=== PATIENT | female | born 1955 | race Caucasian/White ===

== ENCOUNTER 2020-03-01 19:04 | Emergency (ER) | payer BC ==
[2020-03-01 19:17] VITALS: BP 153/89; PULSE 61; BMI 39.4
[2020-03-01 20:47] LABS: INR 1.15 (0.82-1.09); PROTHROMBIN TIME (PATIENT) 12.8 SEC (10.2-13.0)
[2020-03-01 20:49] LABS: ALBUMIN 4.1 g/dl (3.4-5.0); BILIRUBIN,TOTAL 1.1 mg/dl (0.2-1); CALCIUM 9.1 mg/dl (8.5-10); CREATININE 0.8 mg/dl (0.55-1.3); POTASSIUM 3.9 mmol/L (3.5-5.1); TOT PROT 6.9 g/dl (6.4-8.2)
[2020-03-01 20:56] LABS: BASO % 2.3 % (0-2.0); EOS % 1.3 % (0-4.5); HEMATOCRIT 41.9 % (32.4-45.2); HEMOGLOBIN 13.6 GM/dl (10.7-15.3); LYMPH % 29.1 % (8-40); MCH 29.3 pg (25.7-33.7); MCHC 32.5 g/dl (32.0-36.0); MEAN CELL VOLUME 90.2 fl (80-96); MEAN PLT VOLUME 9.8 fl (7.5-11.1); MONO % 7.7 % (3.8-10.2); NEUT % 59.6 % (42.8-82.8); PLATELET COUNT 194 K/MM3 (134-434); RBC 4.64 M/mm3 (3.60-5.2); RDW 12.5 % (11.6-15.6)
[2020-03-01 21:58] VITALS: TEMP 97.9
== END 2020-03-01 23:26 | disposition home or self-care (01) ==
LOC: FER 19:04
DX: R14.0 Abdominal distension (gaseous) (principal); R19.7 Diarrhea, unspecified; J01.01 Acute recurrent maxillary sinusitis
CPT/HCPCS: 36415; 74176-TC; 80053; 81003; 83605; 83690; 85025; 85610; 87040; 99284-25; C9803; U0003

== ENCOUNTER 2020-08-10 10:43 | Inpatient (IN) | payer BC ==
[2020-08-10] MEDS ORDERED: ACETAMINOPHEN 1000 MG/100 ML VIAL (NON FORMULARY) IVPB ONE (11:00)
[2020-08-10] MEDS ORDERED: LACTATED RINGERS SOLUTION 1000 ML INFUS.BAG IV ONE (11:00)
[2020-08-10 11:06] VITALS: BMI 40.3
[2020-08-10] MEDS ORDERED: ACETAMINOPHEN INJECTION 100 ML IVPB ONE (11:49)
[2020-08-10 11:54] LABS: BASO % 2.6 % (0-2.0); EOS % 0.1 % (0-4.5); HEMATOCRIT 40.8 % (32.4-45.2); LYMPH % 4.8 % (8-40); MCH 29.9 pg (25.7-33.7); MCHC 34.2 g/dl (32.0-36.0); MEAN CELL VOLUME 87.6 fl (80-96); MEAN PLT VOLUME 9.5 fl (7.5-11.1); MONO % 4.4 % (3.8-10.2); NEUT % 88.1 % (42.8-82.8); PLATELET COUNT 189 K/MM3 (134-434); RBC 4.66 M/mm3 (3.60-5.2); RDW 12.5 % (11.6-15.6); WHITE BLOOD COUNT 13.8 K/mm3 (4.0-10.8)
[2020-08-10 12:10] LABS: ACTIVATED PTT 25.7 SECONDS (25.2-36.5)
[2020-08-10 12:13] LABS: ALK PHOS 56 U/L (45-117); ANION GAP 7 MMOL/L (8-16); BILIRUBIN,TOTAL 1.2 mg/dl (0.2-1); CALCIUM 8.6 mg/dl (8.5-10); CHLORIDE 105 mmol/L (98-107); CO2 23 mmol/L (21-32); CREATININE 0.8 mg/dl (0.55-1.3); GLUCOSE,RANDOM 101 mg/dl (74-106); SGOT/AST 25 U/L (15-37); SGPT/ALT 29 U/L (13-61); SODIUM 135 mmol/L (136-145); TOT PROT 6.7 g/dl (6.4-8.2)
[2020-08-10 12:14] LABS: INR 1.02 (0.82-1.09); PROTHROMBIN TIME (PATIENT) 11.4 SEC (10.2-13.0)
[2020-08-10] MEDS ORDERED: VANCOMYCIN 250 MG/5 ML ORAL SOLUTION PO ONE (14:32)
[2020-08-10] MEDS ORDERED: ACETAMINOPHEN 1000 MG/100 ML VIAL (NON FORMULARY) IVPB PRN (19:53)
[2020-08-10] MEDS: D5-NS + 20 MEQ KCL - 20 MEQ/1,000 ML INFUS.BAG IV SCH (20:00)
[2020-08-10] MEDS: LACTOBACILLUS ACIDOPHILUS 1 TABLET PO SCH (21:47)
[2020-08-10] MEDS: FAMOTIDINE 20 MG/50 ML IVPB 20 MG/50 ML MG IVPB SCH (21:47)
[2020-08-10] MEDS ORDERED: REFRIGERATED ANITBIOTICS ONE (22:23)
[2020-08-11] MEDS ORDERED: REFRIGERATED ANITBIOTICS ONE ×4 (06:19→22:12)
[2020-08-11] MEDS: VANCOMYCIN 250 MG/5 ML ORAL SOLUTION PO SCH ×4 (06:32→17:42)
[2020-08-11 07:44] LABS: BASO % 2.9 % (0-2.0); EOS % 0.5 % (0-4.5); HEMATOCRIT 38.3 % (32.4-45.2); HEMOGLOBIN 12.5 GM/dl (10.7-15.3); LYMPH % 11.7 % (8-40); MCH 28.7 pg (25.7-33.7); MCHC 32.6 g/dl (32.0-36.0); MEAN CELL VOLUME 87.9 fl (80-96); MEAN PLT VOLUME 9.2 fl (7.5-11.1); MONO % 7.1 % (3.8-10.2); NEUT % 77.8 % (42.8-82.8); PLATELET COUNT 168 K/MM3 (134-434); RBC 4.35 M/mm3 (3.60-5.2); RDW 12.6 % (11.6-15.6); WHITE BLOOD COUNT 7.5 K/mm3 (4.0-10.8)
[2020-08-11 08:09] LABS: ALBUMIN 3.2 g/dl (3.4-5.0); CALCIUM 8.3 mg/dl (8.5-10); CREATININE 0.7 mg/dl (0.55-1.3); TOT PROT 5.4 g/dl (6.4-8.2)
[2020-08-11] MEDS ORDERED: LEVOTHYROXINE NA 75 MCG TABLET (FP) ONE (09:25)
[2020-08-11] MEDS ORDERED: LEVOTHYROXINE NA 100 MCG TABLET (FP) ONE (09:25)
[2020-08-11] MEDS: NEBIVOLOL 2.5 MG TABLET (FP) PO SCH (09:38)
[2020-08-11] MEDS: LEVOTHYROXINE 75 MCG, LEVOTHYROXINE 100 MCG PO SCH (09:38)
[2020-08-11] MEDS: LACTOBACILLUS ACIDOPHILUS 1 TABLET PO SCH ×2 (09:39→21:24)
[2020-08-11] MEDS: FAMOTIDINE 20 MG/50 ML IVPB 20 MG/50 ML MG IVPB SCH ×2 (09:39→21:25)
[2020-08-11] MEDS ORDERED: LEVOTHYROXINE NA 100 MCG TABLET (FP) PO SCH (10:00)
[2020-08-11] MEDS: D5-NS + 20 MEQ KCL - 20 MEQ/1,000 ML INFUS.BAG IV SCH (21:24)
[2020-08-12] MEDS: VANCOMYCIN 250 MG/5 ML ORAL SOLUTION PO SCH ×4 (00:41→18:24)
[2020-08-12] MEDS ORDERED: LEVOTHYROXINE NA 100 MCG TABLET (FP) ONE (06:05)
[2020-08-12] MEDS ORDERED: LEVOTHYROXINE NA 75 MCG TABLET (FP) ONE (06:05)
[2020-08-12] MEDS ORDERED: REFRIGERATED ANITBIOTICS ONE ×3 (06:05→18:21)
[2020-08-12] MEDS: LEVOTHYROXINE 75 MCG, LEVOTHYROXINE 100 MCG PO SCH (06:10)
[2020-08-12 08:25] LABS: BASO % 0.5 % (0-2.0); EOS % 1.7 % (0-4.5); HEMATOCRIT 37.9 % (32.4-45.2); HEMOGLOBIN 12.2 GM/dl (10.7-15.3); LYMPH % 20.8 % (8-40); MCH 28.7 pg (25.7-33.7); MCHC 32.2 g/dl (32.0-36.0); MEAN CELL VOLUME 89.1 fl (80-96); MEAN PLT VOLUME 9.7 fl (7.5-11.1); MONO % 12.4 % (3.8-10.2); NEUT % 64.6 % (42.8-82.8); PLATELET COUNT 163 K/MM3 (134-434); RBC 4.26 M/mm3 (3.60-5.2); RDW 12.6 % (11.6-15.6); WHITE BLOOD COUNT 4.9 K/mm3 (4.0-10.8)
[2020-08-12 08:31] LABS: ALBUMIN 3.1 g/dl (3.4-5.0); BILIRUBIN,TOTAL 0.8 mg/dl (0.2-1); CALCIUM 8.2 mg/dl (8.5-10); CREATININE 0.7 mg/dl (0.55-1.3); TOT PROT 5.4 g/dl (6.4-8.2)
[2020-08-12] MEDS: NEBIVOLOL 2.5 MG TABLET (FP) PO SCH ×2 (11:00→11:15)
[2020-08-12] MEDS: FAMOTIDINE 20 MG/50 ML IVPB 20 MG/50 ML MG IVPB SCH (11:15)
[2020-08-12] MEDS: LACTOBACILLUS ACIDOPHILUS 1 TABLET PO SCH (11:15)
[2020-08-12 14:36] VITALS: BP 122/65; PULSE 49; TEMP 98.3
== END 2020-08-12 19:25 | disposition home or self-care (01) | DRG 373 ==
LOC: FER 10:43 → FM/S 16:44
PROVIDERS: ADMIT Internal Medicine; ATTEND Internal Medicine
DX: A04.72 Enterocolitis due to Clostridium difficile, not specified as recurrent (principal); I10 Essential (primary) hypertension; E03.9 Hypothyroidism, unspecified; E86.0 Dehydration
CPT/HCPCS: 36415; 74176-TC; 80053; 83605; 83735; 84484; 85025; 85610; 85730; 87040; 87045; 87046; 87081; 87324; 87449; 99285-25; C9803; J0131; U0003; U0005

== ENCOUNTER 2022-05-10 09:05 | Emergency (ER) | payer BC ==
[2022-05-10 09:34] VITALS: BP 140/73; PULSE 74; RESP 16; BMI 39.4
[2022-05-10] MEDS ORDERED: ACETAMINOPHEN 1000 MG/100 ML BAG IVPB ONE (10:12)
[2022-05-10] MEDS ORDERED: MAG HYDROX/AL HYDROX/SIMETH 30 ML UNIT-DOSE CUP PO ONE (10:12)
[2022-05-10] MEDS ORDERED: MAG HYDROX/AL HYDROX/SIMETH 30 ML UNIT-DOSE CUP ONE (10:22)
[2022-05-10] MEDS ORDERED: ACETAMINOPHEN INJECTION 100 ML IVPB ONE (10:22)
[2022-05-10 10:38] LABS: HEMATOCRIT 40.7 % (32.4-45.2); HEMOGLOBIN 13.8 G/dL (10.7-15.3); MCH 29.7 pg (25.7-33.7); MEAN CELL VOLUME 87.6 fl (80-96); MEAN PLT VOLUME 8.5 fl (7.5-11.1); PLATELET COUNT 190.1 10^3/uL (134-434); RBC 4.65 10^6/uL (3.60-5.2); RDW 13.9 % (11.6-15.6); WHITE BLOOD COUNT 12.7 10^3/uL (4.0-10.8)
[2022-05-10 10:43] LABS: BILIRUBIN,TOTAL 1.2 mg/dl (0.2-1); CALCIUM 8.9 mg/dl (8.5-10); CREATININE 0.7 mg/dl (0.55-1.3); TOT PROT 6.8 g/dl (6.4-8.2)
[2022-05-10 10:55] LABS: PLATELET ESTIMATE ADEQUATE
[2022-05-10 13:21] VITALS: TEMP 97.6
== END 2022-05-10 13:25 | disposition home or self-care (01) ==
LOC: FER 09:05
PROC: 3E0333Z Introduction of Anti-inflammatory into Peripheral Vein, Percutaneous Approach (ICD-10-PCS; principal; 2022-05-10)
DX: K57.32 Diverticulitis of large intestine without perforation or abscess without bleeding (principal)
CPT/HCPCS: 36415; 74176-TC; 80053; 81003; 83605; 83690; 85027; 99284-25

== ENCOUNTER 2022-06-01 19:49 | Inpatient (IN) | payer BC ==
[2022-06-01 19:58] VITALS: BMI 39.4
[2022-06-01 21:05] LABS: HEMATOCRIT 37.6 % (32.4-45.2); HEMOGLOBIN 12.7 G/dL (10.7-15.3); MCH 29.4 pg (25.7-33.7); MCHC 33.6 g/dl (32.0-36.0); MEAN CELL VOLUME 87.3 fl (80-96); MEAN PLT VOLUME 9.5 fl (7.5-11.1); RBC 4.31 10^6/uL (3.60-5.2); RDW 15.2 % (11.6-15.6); WHITE BLOOD COUNT 11.5 10^3/uL (4.0-10.8)
[2022-06-01 21:11] LABS: ALBUMIN 3.7 g/dl (3.4-5.0); BILIRUBIN,TOTAL 1.2 mg/dl (0.2-1); CALCIUM 8.5 mg/dl (8.5-10); CREATININE 0.6 mg/dl (0.55-1.3); TOT PROT 6.3 g/dl (6.4-8.2)
[2022-06-01] MEDS ORDERED: SODIUM CHLORIDE 1,000 ML IV ONE (23:23)
[2022-06-01] MEDS ORDERED: CEFTRIAXONE 2,000 MG in DEXTROSE 5%-WATER - 50 ML IVPB ONE (23:27)
[2022-06-01] MEDS ORDERED: cefTRIAXone SODIUM 1 GM VIAL ONE (23:28)
[2022-06-01] MEDS ORDERED: ACETAMINOPHEN 500 MG TABLET (FP) PO PRN (23:35)
[2022-06-01] MEDS ORDERED: SODIUM CHLORIDE 1,000 ML IV SCH (23:45)
[2022-06-02] MEDS: CEFTRIAXONE 2 GM in DEXTROSE 5%-WATER 100 ML IVPB SCH (09:43)
[2022-06-02] MEDS ORDERED: LEVOTHYROXINE NA 100 MCG TABLET (FP) PO SCH ×2 (10:00)
[2022-06-02] MEDS: LACTOBACILLUS ACIDOPHILUS 1 TABLET PO SCH ×2 (13:03→21:21)
[2022-06-02] MEDS: FAMOTIDINE 20 MG/50 ML IVPB 20 MG/50 ML MG IVPB SCH (21:21)
[2022-06-03] MEDS ORDERED: LEVOTHYROXINE 75 MCG, LEVOTHYROXINE 100 MCG PO SCH (07:30)
[2022-06-03 08:22] LABS: ALBUMIN 3.2 g/dl (3.4-5.0); BILIRUBIN,TOTAL 0.8 mg/dl (0.2-1); CALCIUM 8.6 mg/dl (8.5-10); CREATININE 0.6 mg/dl (0.55-1.3); TOT PROT 5.8 g/dl (6.4-8.2)
[2022-06-03] MEDS: CEFTRIAXONE 2 GM in DEXTROSE 5%-WATER 100 ML IVPB SCH (09:17)
[2022-06-03] MEDS: LACTOBACILLUS ACIDOPHILUS 1 TABLET PO SCH ×2 (09:17→21:45)
[2022-06-03] MEDS: FAMOTIDINE 20 MG/50 ML IVPB 20 MG/50 ML MG IVPB SCH ×2 (09:17→21:45)
[2022-06-03 09:56] LABS: BASO % 0.4 % (0-2.0); EOS % 1.9 % (0-4.5); HEMATOCRIT 34.6 % (32.4-45.2); HEMOGLOBIN 11.6 GM/dL (10.7-15.3); LYMPH % 16.9 % (8-40); MCH 28.6 pg (25.7-33.7); MCHC 33.5 g/dl (32.0-36.0); MEAN CELL VOLUME 85.1 fl (80-96); MEAN PLT VOLUME 9.7 fl (7.5-11.1); MONO % 8.9 % (3.8-10.2); NEUT % 71.9 % (42.8-82.8); PLATELET COUNT 154 10^3/uL (134-434); RBC 4.07 M/mm3 (3.60-5.2); RDW 14.2 % (11.6-15.6); WHITE BLOOD COUNT 6.1 K/mm3 (4.0-10.0)
[2022-06-04] MEDS: LEVOTHYROXINE 75 MCG, LEVOTHYROXINE 100 MCG PO SCH (06:27)
[2022-06-04 08:54] LABS: CALCIUM 8.5 mg/dl (8.5-10); CREATININE 0.6 mg/dl (0.55-1.3); TOT PROT 5.4 g/dl (6.4-8.2)
[2022-06-04 09:51] LABS: BASO % 0.3 % (0-2.0); EOS % 2.5 % (0-4.5); HEMATOCRIT 33.9 % (32.4-45.2); HEMOGLOBIN 11.4 GM/dL (10.7-15.3); LYMPH % 19.7 % (8-40); MCH 28.5 pg (25.7-33.7); MCHC 33.5 g/dl (32.0-36.0); MEAN CELL VOLUME 85.1 fl (80-96); MEAN PLT VOLUME 9.6 fl (7.5-11.1); MONO % 10.3 % (3.8-10.2); NEUT % 67.2 % (42.8-82.8); PLATELET COUNT 147 10^3/uL (134-434); RBC 3.99 M/mm3 (3.60-5.2); RDW 13.4 % (11.6-15.6); WHITE BLOOD COUNT 4.8 K/mm3 (4.0-10.0)
[2022-06-04] MEDS: LACTOBACILLUS ACIDOPHILUS 1 TABLET PO SCH ×2 (10:05→21:19)
[2022-06-04] MEDS: FAMOTIDINE 20 MG/50 ML IVPB 20 MG/50 ML MG IVPB SCH ×2 (10:06→21:19)
[2022-06-04] MEDS: CEFTRIAXONE 2 GM in DEXTROSE 5%-WATER 100 ML IVPB SCH (11:17)
[2022-06-05 03:59] VITALS: RESP 18
[2022-06-05] MEDS: LEVOTHYROXINE 75 MCG, LEVOTHYROXINE 100 MCG PO SCH (06:42)
[2022-06-05] MEDS: FAMOTIDINE 20 MG/50 ML IVPB 20 MG/50 ML MG IVPB SCH ×2 (09:41→21:31)
[2022-06-05] MEDS: CEFTRIAXONE 2 GM in DEXTROSE 5%-WATER 100 ML IVPB SCH (09:41)
[2022-06-05] MEDS: LACTOBACILLUS ACIDOPHILUS 1 TABLET PO SCH ×2 (09:43→21:31)
[2022-06-06] MEDS: LEVOTHYROXINE 75 MCG, LEVOTHYROXINE 100 MCG PO SCH (06:27)
[2022-06-06 08:34] LABS: CALCIUM 8.6 mg/dl (8.5-10); CREATININE 0.6 mg/dl (0.55-1.3)
[2022-06-06 09:10] LABS: ERYTHROCYTE SEDIMENTATION RATE 10 mm/hr (0-30)
[2022-06-06] MEDS: LACTOBACILLUS ACIDOPHILUS 1 TABLET PO SCH ×2 (09:55→21:32)
[2022-06-06] MEDS: FAMOTIDINE 20 MG/50 ML IVPB 20 MG/50 ML MG IVPB SCH ×2 (09:55→21:32)
[2022-06-06] MEDS: CEFTRIAXONE 2 GM in DEXTROSE 5%-WATER 100 ML IVPB SCH (09:58)
[2022-06-06 10:01] LABS: HEMOGLOBIN 11.7 GM/dL (10.7-15.3); WHITE BLOOD COUNT 3.7 K/mm3 (4.0-10.0)
[2022-06-06 10:11] LABS: BASO % 0.5 % (0-2.0); EOS % 2.3 % (0-4.5); HEMATOCRIT 34.3 % (32.4-45.2); MCH 28.7 pg (25.7-33.7); MCHC 34.1 g/dl (32.0-36.0); MEAN CELL VOLUME 84.2 fl (80-96); MEAN PLT VOLUME 9.9 fl (7.5-11.1); MONO % 11.6 % (3.8-10.2); NEUT % 56.6 % (42.8-82.8); PLATELET COUNT 158 10^3/uL (134-434); RBC 4.07 M/mm3 (3.60-5.2); RDW 13.3 % (11.6-15.6)
[2022-06-07] MEDS: LEVOTHYROXINE 75 MCG, LEVOTHYROXINE 100 MCG PO SCH (06:44)
[2022-06-07] MEDS: CEFTRIAXONE 2 GM in DEXTROSE 5%-WATER 100 ML IVPB SCH (09:12)
[2022-06-07] MEDS: FAMOTIDINE 20 MG/50 ML IVPB 20 MG/50 ML MG IVPB SCH ×2 (09:13→21:38)
[2022-06-07] MEDS: LACTOBACILLUS ACIDOPHILUS 1 TABLET PO SCH ×2 (09:13→21:39)
[2022-06-07 10:11] LABS: PLATELET COUNT 170 10^3/uL (134-434)
[2022-06-07 10:53] LABS: BASO % 0.4 % (0-2.0); EOS % 2.8 % (0-4.5); HEMATOCRIT 35.1 % (32.4-45.2); HEMOGLOBIN 11.9 GM/dL (10.7-15.3); MCH 28.6 pg (25.7-33.7); MEAN CELL VOLUME 83.9 fl (80-96); MONO % 11.8 % (3.8-10.2); RBC 4.18 M/mm3 (3.60-5.2); RDW 13.7 % (11.6-15.6); WHITE BLOOD COUNT 4.2 K/mm3 (4.0-10.0)
[2022-06-07 11:43] LABS: ERYTHROCYTE SEDIMENTATION RATE 6 mm/hr (0-30)
[2022-06-07] MEDS ORDERED: HYDROCORTISONE ACETATE 25 MG/SUPP.RECT RC SCH (22:00)
[2022-06-08] MEDS: LEVOTHYROXINE 75 MCG, LEVOTHYROXINE 100 MCG PO SCH (06:02)
[2022-06-08 06:45] VITALS: TEMP 98.9
[2022-06-08] MEDS: CEFTRIAXONE 2 GM in DEXTROSE 5%-WATER 100 ML IVPB SCH (09:50)
[2022-06-08] MEDS: LACTOBACILLUS ACIDOPHILUS 1 TABLET PO SCH (09:52)
[2022-06-08 10:08] VITALS: BP 136/72; PULSE 62
[2022-06-08] MEDS: FAMOTIDINE 20 MG/50 ML IVPB 20 MG/50 ML MG IVPB SCH (11:34)
== END 2022-06-08 14:54 | disposition home or self-care (01) | DRG 392 ==
LOC: FER 19:49 → FM/S 23:22 → UNDOADMIN 06-02 00:10 → FM/S 06-02 00:10
PROVIDERS: ADMIT Internal Medicine; ATTEND Internal Medicine
DX: K57.32 Diverticulitis of large intestine without perforation or abscess without bleeding (principal); I10 Essential (primary) hypertension; E03.9 Hypothyroidism, unspecified; K59.00 Constipation, unspecified; Z88.1 Allergy status to other antibiotic agents; K64.9 Unspecified hemorrhoids
CPT/HCPCS: 36415; 71045-TC-FY; 74176-TC; 80048; 80053; 81003; 82306; 82607; 83605; 85025; 85027; 85651; 86140; 87040; 87086; 87186; 93005; 99285-25; C9803-CS; U0003; U0005